=== PATIENT | male | born 1980 | race Two or more races ===

== ENCOUNTER 2021-11-17 20:00 | Emergency (ER) | payer OTHER ==
[~2021-11-17] VITALS: Ht 165.1 cm; Wt 98.0 kg
[2021-11-17] MEDS ORDERED: IBUPROFEN 600MG TABLET PO STA (20:48)
[2021-11-17] MEDS ORDERED: ACETAMINOPHEN 325MG TABLET PO STA (20:48)
[2021-11-17 23:26] LABS: CHLORIDE 107 mEq/L (98-107)
[2021-11-17 23:36] LABS: BASOPHILS % 0.6 % (0.0-2.0); EOSINOPHILS % 2.6 % (0.0-5.0); HEMATOCRIT. 42.3 % (42.0-52.0); HEMOGLOBIN. 14.2 g/dL (14.0-18.0); LYMPHOCYTES % 38.9 % (20.0-50.0); MEAN CORPUSCULAR VOLUME 86.5 fL (80.0-94.0); MEAN PLATELET VOLUME 6.9 fl (7.4-10.4); MONOCYTES % 8.7 % (2.0-8.0); NEUTROPHILS % 49.2 % (40.0-76.0); PLATELET 247 x1000/uL (130-400); RED BLOOD CELL COUNT 4.89 mill/uL (4.7-6.1); RED CELL DISTRIBUTION WIDTH 13.7 % (11.6-14.6)
[2021-11-17 23:39] LABS: CREATINE KINASE 519 IU/L (39-308)
[2021-11-18 00:05] VITALS: BP 133/74
[2021-11-18] MEDS: KETOROLAC 60MG/2ML VIAL IM ONE ×2 (00:15→00:35)
[2021-11-18 00:24] LABS: CLARITY URINE CLEAR (CLEAR); COLOR URINE YELLOW (YELLOW); KETONES URINE TRACE (NEGATIVE); LEUKOCYTE ESTERASE URINE NEGATIVE (NEGATIVE); NITRITE URINE NEGATIVE (NEGATIVE); OCCULT BLOOD URINE NEGATIVE (NEGATIVE); PROTEIN URINE NEGATIVE (NEGATIVE); SPECIFIC GRAVITY URINE 1.031 (1.005-1.030); UROBILINOGEN URINE 0.2 E.U./dL (0.2-1.0)
== END 2021-11-18 01:06 | disposition left against medical advice (07) ==
LOC: ER 20:00
DX: M79.662 Pain in left lower leg (principal)
CPT/HCPCS: 36415; 80053; 82550; 85025; 93971; 99284; J1885

== ENCOUNTER 2024-07-27 12:47 | Emergency (ER) | payer MEDICAID, OTHER ==
[~2024-07-27] VITALS: Ht 172.7 cm; Wt 91.0 kg
[2024-07-27 12:53] VITALS: TEMP 97.6; O2SAT 98
[2024-07-27] MEDS ORDERED: HYDROCODONE/ACETAMINOPHEN 5/325MG TABLET PO ONE (13:45)
[2024-07-27 15:44] VITALS: BP 125/67; PULSE 80; RESP 16
[2024-07-27] MEDS: KETOROLAC 30MG/ML VIAL IM ONE (15:44)
[2024-07-27] MEDS: HYDROCODONE/ACETAMINOPHEN 5/325MG TABLET PO NR (15:44)
[2024-07-27] MEDS ORDERED: NAPR-679 MT (16:37)
[2024-07-27] MEDS ORDERED: TOPUD MT (16:37)
[2024-07-27] MEDS ORDERED: LIDO700A15 TP (16:37)
[2024-07-27] MEDS ORDERED: METH4TAB95 MT (16:37)
== END 2024-07-27 17:43 | disposition home or self-care (01) ==
LOC: ER 12:47
DX: S16.1XXA Strain of muscle, fascia and tendon at neck level, initial encounter (principal); M54.50 Low back pain, unspecified; W20.8XXA Other cause of strike by thrown, projected or falling object, initial encounter; Y93.89 Activity, other specified; Y92.89 Other specified places as the place of occurrence of the external cause; Y99.8 Other external cause status
CPT/HCPCS: 70450; 72125; 72131; 96372; 99285; J1885; Z7610